=== PATIENT | female | born 1970 | race Caucasian/White ===

== ENCOUNTER 2017-04-24 02:12 | Emergency (ER) | payer BC ==
[2017-04-24] MEDS ORDERED: IPRATROPIUM-ALBUTEROL 3 ML NEB INHALATION STA (02:27)
--- NOTE | 2017-04-24 02:32 | ED ---
General Adult HPI - General Chief complaint: Shortness of Breath Stated complaint: SOB Time Seen by Provider: 04/24/17 02:21 Source: patient, RN notes reviewed Mode of arrival: ambulatory Limitations: no limitations - History of Present Illness Initial comments: Patient is a 46-year-old female presents emergency room for evaluation of cough. Patient states had a cough for about a week. Patient states she's been having congestion and productive cough. Patient states that she was placed on azithromycin and prednisone about 3 days ago. Patient states she has been taking the medications for the past 3 days with no relief of symptoms. Patient states that she can feel drainage in the back of her throat and into her chest. Patient states she has been using nebulizer treatments with little relief of symptoms. Patient states she is still continuing to cough. Patient states the coughing is causing her ribs to hurt. Patient denies smoking. Patient denies nausea or vomiting. Patient states she just wants the coughing to stop. - Related Data Previous Rx's Medication Instructions Recorded Benzonatate [Tessalon Perles] 100 mg PO TID PRN #12 cap 04/24/17 Allergies Allergy/AdvReac Type Severity Reaction Status Date / Time prochlorperazine Allergy Unknown Verified 04/24/17 02:18 [From Compazine] Quinazolinones Allergy Unknown Verified 04/24/17 02:18 Review of Systems ROS Statement: Those systems with pertinent positive or pertinent negative responses have been documented in the HPI. ROS Other: All systems not noted in ROS Statement are negative. Past Medical History Past Medical History: No Reported History History of Any Multi-Drug Resistant Organisms: None Reported Past Surgical History: No Surgical Hx Reported Past Psychological History: No Psychological Hx Reported Smoking Status: Never smoker Past Alcohol Use History: None Reported Past Drug Use History: None Reported General Exam - General Exam Comments Initial Comments: Sitting in exam room, no acute distress. Limitations: no limitations General appearance: alert, in no apparent distress Head exam: Present: atraumatic, normocephalic, normal inspection Eye exam: Present: normal appearance ENT exam: Present: normal exam Neck exam: Present: normal inspection Respiratory exam: Present: normal lung sounds bilaterally. Absent: respiratory distress Cardiovascular Exam: Present: regular rate, normal rhythm, normal heart sounds Extremities exam: Present: normal inspection Back exam: Present: normal inspection Neurological exam: Present: alert, oriented X3, CN II-XII intact, normal gait Psychiatric exam: Present: normal affect, normal mood Skin exam: Present: warm, dry, intact, normal color. Absent: rash Course Vital Signs 04/24/17 04/24/17 04/24/17 02:14 02:43 02:53 Temperature 98.1 F Pulse Rate 99 80 89 Respiratory 20 Rate Blood Pressure 135/63 O2 Sat by Pulse 97 Oximetry 04/24/17 03:40 Temperature 97.6 F Pulse Rate 98 Respiratory 18 Rate Blood Pressure 106/54 O2 Sat by Pulse 98 Oximetry Medical Decision Making - Medical Decision Making Patient is a 46-year-old female presents to the emergency room for evaluation of cough. Chest x-ray shows no signs of pneumonia, pleural effusions or pneumothorax. Advised patient to continue with azithromycin and prednisone. Will add on Tessalon Perles. Patient states she understands everything that was discussed with her. Return parameters discussed. Case discussed Dr. Barber. - Radiology Data Radiology results: report reviewed, image reviewed Disposition Clinical Impression: Bronchitis Disposition: HOME SELF-CARE Condition: Good Instructions: Acute Bronchitis (ED) Additional Instructions: Continue with antibiotics and prednisone as directed. Continue with at home breathing treatments as needed every 4-6 hours. Can also take [id number]-[id number] Mucinex or Robitussin. Take Tessalon Perles as needed for cough. Please follow up with primary care provider in 1-2 days. If any new symptom arises or symptoms worsen, return to ER as soon as possible. Prescriptions: Benzonatate [Tessalon Perles] 100 mg PO TID PRN #12 cap PRN Reason: Cough Referrals: Shawn Brantley MD [Primary Care Provider] - 1-2 days Time of Disposition: 03:22
--- NOTE | 2017-04-24 03:25 | XR ---
EXAM:Chest PA and lateral views INDICATION: 46-year-old female with cough. COMPARISON: None. FINDINGS: PA and lateral views of the chest are obtained. The cardiomediastinal silhouette is within normal limits. Lungs are clear. No focal consolidation, pneumothorax, or pleural effusions. Bony elements are within normal limits. IMPRESSION: No acute cardiopulmonary disease.
[2017-04-24 03:44] VITALS: BP 106/54; PULSE 98; RESP 18; TEMP 97.6
== END 2017-04-24 03:40 | disposition home or self-care (01) ==
LOC: EC 02:12
DX: J40 Bronchitis, not specified as acute or chronic (principal); Z88.8 Allergy status to other drugs, medicaments and biological substances
CPT/HCPCS: 71020; 94640; 99285

== ENCOUNTER 2019-10-16 17:27 | Emergency (ER) | payer BC ==
[2019-10-16 17:43] VITALS: BP 113/57; RESP 20
--- NOTE | 2019-10-16 19:11 | XR ---
EXAMINATION: XR chest 2V DATE AND TIME: 10/16/2019 6:36 PM CLINICAL INDICATION: PHH; cough TECHNIQUE: Departmental protocol COMPARISON: None FINDINGS: The lungs are clear. The pleural spaces are negative. The cardiac silhouette is not enlarged. The remainder of the mediastinal silhouette is unremarkable. The skeletal structures and soft tissues are negative for acute findings. IMPRESSION: NO ACUTE PROCESS.
--- NOTE | 2019-10-16 19:31 | ED ---
URI HPI - General Chief Complaint: Upper Respiratory Infection Stated Complaint: SOB/cough & congestion Time Seen by Provider: 10/16/19 17:56 Source: patient Mode of arrival: ambulatory Limitations: no limitations - History of Present Illness Initial Comments: 49-year-old female presenting for persisting cough. Patient states the past week she has had congestion with cough she states now the cough is critical and throat and she cannot stop coughing. She states she coughed so hard it makes her vomit and she is short of breath from coughing. Patient denies any chest pain hemoptysis. Patient states her throat is sore from coughing. She states last she had chills and felt like she may have had a fever but did not record a temperature. Patient states that has since resolved. Patient states that she had been advised by ENT for this complaint and had a scope performed were she had some inflammation of the larynx. patient otherwise has been taking Tessalon Perles and [id number]-ojt-[id number] remedies for cough which don't seem to be helping. Patient states she is not getting much sleep at night due to the coughing. remaining ROS (-). denies vomiting, diarrhea, neck stiffness, headache, leg swelling. Patient coughing on arrival. - Related Data Previous Rx's Medication Instructions Recorded Benzonatate [Tessalon Perles] 100 mg PO TID PRN #12 cap 04/24/17 Loratadine-Pseudoeph 10-240 mg 1 tab PO DAILY 7 Days #7 tab 10/16/19 [Claritin-D 24 Hour] Promethaz-Cod 6.25-10 mg/5 ml 5 ml PO Q6H PRN 3 Days #90 ml 10/16/19 [Phenergan with Codeine] Allergies Allergy/AdvReac Type Severity Reaction Status Date / Time prochlorperazine Allergy Unknown Verified 10/16/19 17:43 [From Compazine] Quinolones Allergy Unknown Verified 10/16/19 17:43 Sulfa (Sulfonamide Allergy Unknown Verified 10/16/19 17:43 Antibiotics) Review of Systems ROS Statement: Those systems with pertinent positive or pertinent negative responses have been documented in the HPI. ROS Other: All systems not noted in ROS Statement are negative. Past Medical History Past Medical History: No Reported History History of Any Multi-Drug Resistant Organisms: None Reported Past Surgical History: No Surgical Hx Reported Past Psychological History: No Psychological Hx Reported Smoking Status: Never smoker Past Alcohol Use History: None Reported Past Drug Use History: None Reported General Exam - General Exam Comments Initial Comments: General: The patient is awake and alert, in no distress Eye: +3 mm pupils are equal, round and reactive to light, extra-ocular movements are intact. No nystagmus. There is normal conjunctiva bilaterally. No signs of icterus. No photophobia Ears, nose, mouth and throat: There are moist mucous membranes and no oral lesions. Oropharynx was not erythematous there is no tonsillar enlargement exudates or lesions. Uvula midline. Tympanic membranes are not erythematous or is no effusions bulging or retraction. No tenderness to palpation of the mastoid. No anterior cervical lymphadenopathy. Rhinorrhea, clear and bilateral nares. Neck: The neck is supple, there is no tenderness or JVD. No nuchal rigidity negative Brudzinski and Kernig Cardiovascular: There is a regular rate and rhythm. No murmur, rub or gallop is appreciated. Respiratory: Lungs are clear to auscultation, respirations are non-labored, breath sounds are equal. No wheezes, stridor, rales, or rhonchi. No retractions or abdominal breathing. DRY PERSISTENT COUGH Gastrointestinal: Soft, non-distended, non-tender abdomen without masses or organomegaly noted. There is no rebound or guarding present. Bowel sounds are unremarkable. Musculoskeletal: Normal ROM, no tenderness. Strength 5/5. Sensation intact. Radial pulses equal bilaterally 2+. Neurological: A&O x 3. CN II-XII intact grossly, There are no obvious motor or sensory deficits. Coordination appears grossly intact. Speech appears normal, no muffling. Skin: Skin is warm and dry and no rashes or lesions are noted. No extremity edema Psychiatric: Cooperative Limitations: no limitations Course Vital Signs 10/16/19 10/16/19 17:41 19:59 Temperature 98.9 F 98.8 F Pulse Rate 106 H 102 H Respiratory 20 20 Rate Blood Pressure 113/57 O2 Sat by Pulse 96 97 Oximetry Medical Decision Making - Medical Decision Making 49 year female presenting today for chief complaint of persistent cough. Patient states no zugy-wza-tjuklcz remedies or Tessalon Perles are working. Patient denies fevers afebrile on arrival nontoxic appearing. Chest x-ray clear. Post nasal drop on exam. Patient had evaluation to ENT which showed laryngitis. Patient will be given promethazine with codeine discussed rare side effect of dystonic reaction and risks associated with codeine. Would still like to try prescription. Patient will be discharged with instruction to f/u with PCP. Otherwise patient appears well and this most likely is a viral URI> Discussed case with attendign who is agreeable to discharge. Disposition Clinical Impression: Cough, Post-nasal drip Disposition: HOME SELF-CARE Condition: Good Instructions (If sedation given, give patient instructions): Acute Cough (ED), Postnasal Drip (DC) Additional Instructions: Please use medication as discussed. Please follow-up with family doctor in the next 2 days. Please return to emergency room if the symptoms increase or worsen or for any other concerns. Prescriptions: Loratadine-Pseudoeph 10-240 mg [Claritin-D 24 Hour] 1 tab PO DAILY 7 Days #7 tab Promethaz-Cod 6.25-10 mg/5 ml [Phenergan with Codeine] 5 ml PO Q6H PRN 3 Days #90 ml PRN Reason: Cough Is patient prescribed a controlled substance at d/c from ED?: No Referrals: Shawn Branltey MD [Primary Care Provider] - 1-2 days Time of Disposition: 19:31
[2019-10-16 20:02] VITALS: PULSE 102; TEMP 98.8
== END 2019-10-16 20:01 | disposition home or self-care (01) ==
LOC: EC 17:27
DX: J05.0 Acute obstructive laryngitis [croup] (principal); R09.82 Postnasal drip; Z88.2 Allergy status to sulfonamides; Z88.8 Allergy status to other drugs, medicaments and biological substances
CPT/HCPCS: 71046; 99284

== ENCOUNTER → 2019-10-16 | Outpatient (CLI) | payer BC | LOC: PROCWHC3 11:20 | PROVIDERS: ATTEND Physician Assistant | DX: R05 Cough (principal) | CPT/HCPCS: 87502 ==